=== PATIENT | male | born 1960 | race Caucasian/White ===

== ENCOUNTER → 2016-11-13 | Outpatient (CLI) | payer OTHER ==
[~2016-11-13] MED LIST: ASPIR 8181 M1 PO; Aspirin E.C. PO; FISH OIL500 MG PO; METOPROLOL PO; METOPROLOL SUCC50 MG PO; Metamucil Packet PO; PRINIVIL20 MG PO; PROTONIX40 MG PO; Protonix PO; VITAMIN C250 MG PO; ZOCOR10 MG PO; Zestril,Prinivil PO
== END | disposition home or self-care (01) ==
LOC: NUC 07:13
DX: R10.13 Epigastric pain (principal)
CPT/HCPCS: 78264; A9541

== ENCOUNTER 2017-03-14 22:04 | Emergency (ER) | payer OTHER ==
[~2017-03-14] VITALS: Ht 172.7 cm; Wt 107.9 kg
[2017-03-14 22:49] LABS: EOSINOPHIL (%) 0.5 % (0-5); EOSINOPHIL COUNT 0.1 K/uL (0-0.3); HEMATOCRIT 42.9 % (38.0-50.0); IMMATURE GRANULOCYTE (%) 0.5 % (0.0-0.7); IMMATURE GRANULOCYTE COUNT 0.1 K/uL; INSTRUMENT ABS NEUTROPHIL CT 8.8 K/uL; LYMPHOCYTE COUNT 1.1 K/uL (1.0-2.8); MCH 30.5 PG (29.0-34.0); MCHC 33.8 G/DL (30.0-36.0); MCV 90.1 FL (86-99); MEAN PLAT.VOLUME 9.3 uM^3 (9.0-12.4); MONOCYTE (%) 9.6 % (3-12); MONOCYTE COUNT 1.1 K/uL (0-0.8); NEUTROPHIL (%) 79.3 % (45-76); NEUTROPHIL COUNT 8.8 K/uL (1.8-6.4); PLATELET COUNT 217 K/uL (156-360); RBC DIS.WIDTH-CV 13.5 % (11.8-14.6); RBC DIS.WIDTH-SD 44.4 % (39-53); RED BLOOD COUNT 4.76 M/uL (4.00-5.50); WHITE BLOOD COUNT 11.1 K/uL (4.1-10.2)
[2017-03-14] MEDS ORDERED: LOVASTATIN20 MG PO (22:56)
[2017-03-14] MEDS ORDERED: ZANTAC150 MG PO (22:56)
[2017-03-14 22:57] LABS: CHLORIDE 105 mEq/L (99-109)
[2017-03-14 22:58] LABS: SODIUM 142 mEq/L (136-147)
[2017-03-14 23:00] LABS: GLUCOSE 120 mg/dL (70-99)
[2017-03-14 23:01] LABS: ANION GAP 11 MEQ/L (2-14)
[2017-03-14 23:02] LABS: TOTAL BILIRUBIN 0.6 mg/dL (0.0-1.0)
[2017-03-14 23:02] LABS: ADD MIUA? NO; BILIRUBIN NEGATIVE; BLOOD NEGATIVE; COLOR YELLOW ((YELLOW)); GLUCOSE (STRIP) NEGATIVE; KETONES NEGATIVE; LEUKOCYTES NEGATIVE; NITRITE NEGATIVE; PROTEIN (STRIP) NEGATIVE; SPECIFIC GRAVITY 1.021 (1.000-1.030); UROBILINOGEN 0.2 MG/DL (0.2-1.0)
[2017-03-14 23:03] LABS: ALKALINE PHOSPHATASE 57 IU/L (3-129); GFR ESTIMATE (CALCULATED) > 59 mL/min/
[2017-03-14 23:05] LABS: UREA NITROGEN (BUN) 15 mg/dL (9-23)
[2017-03-14 23:07] LABS: LIPASE 29 U/L (1.0-51.0)
[2017-03-14] MEDS ORDERED: REGLAN10 MG PO (23:19)
[2017-03-14] MEDS ORDERED: BENTYL20 MG PO (23:19)
[2017-03-14 23:49] VITALS: BP 141/84
[2017-03-15] MEDS ORDERED: FISH OIL 1,0001 EAC7 PO (19:42)
[2017-03-15] MEDS ORDERED: ZESTRIL10 MG PO (19:43)
== END 2017-03-14 23:57 | disposition home or self-care (01) ==
LOC: EME 22:04
PROVIDERS: Physician Assistant
DX: K42.9 Umbilical hernia without obstruction or gangrene (principal); K21.9 Gastro-esophageal reflux disease without esophagitis; E78.5 Hyperlipidemia, unspecified; I10 Essential (primary) hypertension; Z79.82 Long term (current) use of aspirin
CPT/HCPCS: 74022; 80053; 81003; 83690; 85025; 99281; 99284

== ENCOUNTER 2017-03-15 15:35 | Day surgery (SDC) | payer OTHER ==
[~2017-03-15] VITALS: Ht 172.7 cm; Wt 106.8 kg
[~2017-03-15 15:35] MED LIST changes: +BENTYL20 MG PO; +LOVASTATIN20 MG PO; +REGLAN10 MG PO; +ZANTAC150 MG PO
[2017-03-15 16:06] LABS: HEMATOCRIT 42.8 % (38.0-50.0); MCH 30.1 PG (29.0-34.0); MCHC 33.6 G/DL (30.0-36.0); MCV 89.5 FL (86-99); MEAN PLAT.VOLUME 9.2 uM^3 (9.0-12.4); PLATELET COUNT 231 K/uL (156-360); RBC DIS.WIDTH-CV 13.6 % (11.8-14.6); RBC DIS.WIDTH-SD 44.6 % (39-53); RED BLOOD COUNT 4.78 M/uL (4.00-5.50); WHITE BLOOD COUNT 15.6 K/uL (4.1-10.2)
[2017-03-15 16:26] LABS: ANION GAP 9 MEQ/L (2-14); CHLORIDE 99 MEQ/L (99-109); POTASSIUM 3.7 MEQ/L (3.7-5.4); SAMPLE HEMOLYSIS CHECK 0; SAMPLE ICTERIC CHECK 0; SAMPLE LIPEMIA CHECK 0; SODIUM 136 MEQ/L (136-147); TOTAL BILIRUBIN 1.8 MG/DL (0.0-1.0)
[2017-03-15 16:32] LABS: ALKALINE PHOSPHATASE 57 IU/L (3-129); GFR ESTIMATE (CALCULATED) > 59 mL/min/; GLUCOSE 122 mg/dL (70-99); LIPASE 14 U/L (1.0-51.0); UREA NITROGEN (BUN) 12 mg/dL (9-23)
[2017-03-15 18:28] LABS: ADD MIUA? NO; BILIRUBIN NEGATIVE; BLOOD NEGATIVE; COLOR YELLOW ((YELLOW)); GLUCOSE (STRIP) NEGATIVE; KETONES NEGATIVE; LEUKOCYTES NEGATIVE; NITRITE NEGATIVE; PROTEIN (STRIP) NEGATIVE; UCUL ADDED? NO; UROBILINOGEN 0.2 MG/DL (0.2-1.0)
[2017-03-15 19:21] LABS: SPECIFIC GRAVITY 1.073 (1.000-1.030)
[2017-03-15] MEDS ORDERED: FISH OIL 1,0001 EAC7 PO (19:42)
[2017-03-15] MEDS ORDERED: ZESTRIL10 MG PO (19:43)
[2017-03-15 22:43] VITALS: BP 121/71
[2017-03-16 04:04] VITALS: BP 113/70
[2017-03-16 06:39] LABS: HEMATOCRIT 37.2 % (38.0-50.0); MCH 30.8 PG (29.0-34.0); MCHC 33.9 G/DL (30.0-36.0); MEAN PLAT.VOLUME 9.9 uM^3 (9.0-12.4); PLATELET COUNT 187 K/uL (156-360); RBC DIS.WIDTH-CV 13.5 % (11.8-14.6); RBC DIS.WIDTH-SD 45.1 % (39-53); RED BLOOD COUNT 4.09 M/uL (4.00-5.50); WHITE BLOOD COUNT 11.5 K/uL (4.1-10.2)
[2017-03-16 08:29] VITALS: BP 88/48
[2017-03-16 08:38] VITALS: BP 115/58
[2017-03-16] MEDS ORDERED: OXYCODONE HCL5 MG PO (11:16)
[2017-03-16 11:42] VITALS: BP 119/61
== END 2017-03-16 15:05 | disposition home or self-care (01) ==
LOC: EME 15:35 → SDC 20:05 → 2EASTP 21:45 → 2SOUTH 21:45 → 2EASTP 22:34
PROVIDERS: Physician Assistant; Surgery
PROC: 0DTJ4ZZ Resection of Appendix, Percutaneous Endoscopic Approach (ICD-10-PCS; principal; 2017-03-15)
DX: K35.80 Unspecified acute appendicitis (principal); I95.81 Postprocedural hypotension; K21.9 Gastro-esophageal reflux disease without esophagitis; I10 Essential (primary) hypertension; E78.5 Hyperlipidemia, unspecified; E66.9 Obesity, unspecified; Z68.36 Body mass index [BMI] 36.0-36.9, adult; Z82.49 Family history of ischemic heart disease and other diseases of the circulatory system; Z79.82 Long term (current) use of aspirin
CPT/HCPCS: 74177; 80053; 81003; 83690; 85027; 88304; 93005; 99281; 99285; G0378; J0131; J0330; J1100; J1650; J1885; J2250; J2270; J2405; J2710; J3010; J7030; J7120